=== PATIENT | male | born 1955 | race African-American/Black ===

== ENCOUNTER 2024-10-12 00:31 | Inpatient (IN) | payer MEDICARE, MEDICAID ==
[~2024-10-12] VITALS: Ht 182.9 cm; Wt 76.2 kg
[2024-10-12 00:34] VITALS: O2SAT 96
[2024-10-12 03:13] LABS: BASOPHILS % 0.9 % (0.0-2.0); EOSINOPHILS % 0.2 % (0.0-5.0); HEMATOCRIT. 41.1 % (42.0-52.0); HEMOGLOBIN. 13.6 g/dL (14.0-18.0); LYMPHOCYTES % 10.5 % (20.0-50.0); MEAN PLATELET VOLUME 8.3 fl (7.4-10.4); MONOCYTES % 6.5 % (2.0-8.0); NEUTROPHILS % 81.9 % (40.0-76.0); PLATELET 246 x1000/uL (130-400); RED BLOOD CELL COUNT 4.60 mill/uL (4.7-6.1); RED CELL DISTRIBUTION WIDTH 16.9 % (11.6-14.6)
[2024-10-12 03:28] LABS: CREATININE 1.0 mg/dL (0.6-1.3); UREA NITROGEN BLOOD < 5 mg/dL (9-23)
[2024-10-12] MEDS: SODIUM CHLORIDE 0.9% 1,000 ML IV ONE (03:28)
[2024-10-12 03:33] LABS: TROPONIN I HIGH SENSITIVITY 70 ng/L (3.0-53)
[2024-10-12] MEDS: CEFTRIAXONE 1GM/50ML 50 ML IV NR (04:12)
[2024-10-12] MEDS: SODIUM CHLORIDE 0.9% (SEPSIS BOLUS) IV NR (04:12)
[2024-10-12 04:28] LABS: ASPARTATE AMINOTRANSFERASE 44 IU/L (<34); BILIRUBIN DIRECT 0.2 mg/dL (<=3.0); BILIRUBIN TOTAL 0.9 mg/dL (0.1-1.0); PROTEIN TOTAL 7.2 g/dL (6.0-8.3)
[2024-10-12 04:35] LABS: TROPONIN I HIGH SENSITIVITY 97 ng/L (3.0-53)
[2024-10-12] MEDS: AZITHROMYCIN 500MG/250ML 250 ML IV NR (04:57)
[2024-10-12 05:39] LABS: CLARITY URINE CLEAR (CLEAR); COLOR URINE YELLOW (YELLOW); GLUCOSE URINE NEGATIVE (NEGATIVE); KETONES URINE NEGATIVE (NEGATIVE); LEUKOCYTE ESTERASE URINE NEGATIVE (NEGATIVE); NITRITE URINE NEGATIVE (NEGATIVE); OCCULT BLOOD URINE TRACE (NEGATIVE); PH URINE 7.5 (4.5-8.0); PROTEIN URINE NEGATIVE (NEGATIVE); SPECIFIC GRAVITY URINE 1.007 (1.005-1.030); UROBILINOGEN URINE 1.0 E.U./dL (0.2-1.0)
[2024-10-12] MEDS ORDERED: ACETAMINOPHEN 325MG TABLET PO PRN ×2 (05:45→09:15)
[2024-10-12 07:27] LABS: WBC URINE 0-2 /hpf (0-2)
[2024-10-12 07:28] LABS: BACTERIA URINE NONE SEEN; RBC URINE 0-2 /hpf (0-2); SQUAMOUS EPITHELIAL CELL URINE NONE SEEN /lpf (RARE/1+)
[2024-10-12] MEDS ORDERED: ONDANSETRON HCL 4MG/2ML INJ IV PRN (09:15)
[2024-10-12] MEDS ORDERED: ALBUTEROL 6.7GM HFA INHALER ORI PRN (09:15)
[2024-10-12] MEDS ORDERED: DEXTROSE 50% WATER 50ML SYRINGE IV PRN (09:15)
[2024-10-12 09:42] LABS: INFLUENZA TYPE A Presumptive Negative (Pres. Neg.)
[2024-10-12 09:43] LABS: INFLUENZA TYPE B Presumptive Negative (Pres. Neg.); RESPIRATORY SYNCYTIAL VIRUS Not Detected (Not Detectd)
[2024-10-12] MEDS ORDERED: ALBUTEROL (0.083%) 2.5MG/3ML NEB HHN PRN (10:45)
[2024-10-12] MEDS: PANTOPRAZOLE SODIUM 40 MG/VIAL IV SCH (10:54)
[2024-10-12] MEDS: IOHEXOL-300 100 ML BOTTLE ONE (12:25)
[2024-10-12] MEDS: BLOOD SUGAR DIAGNOSTIC STRIP TEST SCH (12:55)
[2024-10-12 16:51] VITALS: BP 160/89; PULSE 57; RESP 18; TEMP 36.8628
[2024-10-12 17:00] VITALS: BP 166/89; PULSE 57; RESP 17; TEMP 36.2; O2SAT 97
[2024-10-12] MEDS: INSULIN LISPRO 100 UNITS/ML SUBCUT SCH (17:50)
[2024-10-12 20:00] VITALS: BP 146/97; PULSE 83; RESP 58; TEMP 36.6; O2SAT 96
[2024-10-13] VITALS: BP 169/85; PULSE 54; RESP 18; TEMP 35.8; O2SAT 97
[2024-10-13] MEDS: HYDRALAZINE 20MG/ML VIAL IV PRN (01:12)
[2024-10-13 04:00] VITALS: BP 147/93; PULSE 58; RESP 18; TEMP 36.1; O2SAT 97
[2024-10-13] MEDS: CEFTRIAXONE 1GM/50ML 50 ML IV SCH (05:40)
[2024-10-13] MEDS: AZITHROMYCIN 500MG/250ML 250 ML IV SCH (05:55)
[2024-10-13] MEDS ORDERED: AZITHROMYCIN 500MG/250ML 250 ML IV SCH (06:00)
[2024-10-13 08:00] VITALS: BP 177/96; PULSE 68; RESP 18; TEMP 36.4; O2SAT 99
[2024-10-13 12:00] VITALS: BP 160/86; PULSE 70; RESP 17; TEMP 36.3; O2SAT 97
[2024-10-13 16:00] VITALS: BP 164/92; PULSE 69; RESP 17; TEMP 36.5; O2SAT 99
[2024-10-13] MEDS: ASPIRIN 81MG TABLET PO SCH (18:54)
[2024-10-13 20:36] LABS: BASOPHILS % 1.3 % (0.0-2.0); EOSINOPHILS % 1.0 % (0.0-5.0); HEMATOCRIT. 45.0 % (42.0-52.0); HEMOGLOBIN. 14.8 g/dL (14.0-18.0); LYMPHOCYTES % 60.0 % (20.0-50.0); MEAN PLATELET VOLUME 9.5 fl (7.4-10.4); MONOCYTES % 8.2 % (2.0-8.0); NEUTROPHILS % 29.5 % (40.0-76.0); PLATELET 294 x1000/uL (130-400); RED BLOOD CELL COUNT 5.01 mill/uL (4.7-6.1); RED CELL DISTRIBUTION WIDTH 16.8 % (11.6-14.6)
[2024-10-13 20:55] LABS: CREATININE 0.8 mg/dL (0.6-1.3); UREA NITROGEN BLOOD < 5 mg/dL (9-23)
[2024-10-13 20:56] LABS: TRIGLYCERIDE 164.0 mg/dL (0-150)
[2024-10-13 20:57] LABS: LDL CHOLESTEROL 188.0 mg/dL (5-100)
[2024-10-13] MEDS: ATORVASTATIN CALCIUM 40MG TABLET PO SCH (22:00)
[2024-10-13] MEDS: CLOPIDOGREL 75MG TABLET PO SCH (22:01)
[2024-10-14 08:00] VITALS: BP 123/80; PULSE 77; RESP 18; TEMP 36.4; O2SAT 99
[2024-10-14 12:00] VITALS: BP 158/89; PULSE 61; RESP 16; TEMP 36.5; O2SAT 100
[2024-10-14 16:00] VITALS: BP_SYST 138; BP_SYST 158; BP_DIAS 103; BP_DIAS 89; PULSE 61; PULSE 69; RESP 16; RESP 18; TEMP 36.5; O2SAT 100; O2SAT 98
[2024-10-14 20:00] VITALS: BP 142/89; PULSE 67; RESP 19; TEMP 36.4; O2SAT 99
[2024-10-15] VITALS: BP 164/117; PULSE 122; RESP 19; TEMP 36.3; O2SAT 96
[2024-10-15 04:00] VITALS: BP 165/111; PULSE 86; RESP 18; TEMP 36.3; O2SAT 96
[2024-10-15 08:00] VITALS: BP 129/99; PULSE 80; RESP 19; TEMP 36.4; O2SAT 99
[2024-10-15] MEDS: FAMOTIDINE 20MG/2ML VIAL IV SCH (09:36)
[2024-10-15] MEDS ORDERED: HYDRALAZINE 20MG/ML VIAL IV PRN (11:45)
[2024-10-15 12:00] VITALS: BP 141/99; PULSE 66; RESP 17; TEMP 36.5; O2SAT 98
[2024-10-15 16:00] VITALS: BP 146/91; PULSE 92; RESP 18; TEMP 36.3; O2SAT 99
[2024-10-15] MEDS ORDERED: AZIT500T8 MT (17:05)
[2024-10-15 20:00] VITALS: BP 143/87; PULSE 78; RESP 17; TEMP 36.6; O2SAT 99
[2024-10-16] VITALS: BP 137/78; PULSE 81; RESP 18; TEMP 36.4; O2SAT 100
[2024-10-16 04:00] VITALS: BP 149/99; PULSE 79; RESP 18; TEMP 37.4; O2SAT 99
[2024-10-16 08:00] VITALS: BP 141/90; PULSE 76; RESP 19; TEMP 36.9; O2SAT 98
[2024-10-16] MEDS: ENOXAPARIN 40MG/0.4ML SYR SUBCUT SCH (09:00)
[2024-10-16 13:35] VITALS: BP 120/78; PULSE 68; RESP 18; TEMP 97.9
== END 2024-10-16 14:30 | disposition home or self-care (01) | DRG 871 ==
LOC: ER 00:31 → UNDOADMIN 04:35 → 5WST 04:35 → EDBEDREQTM 04:48 → EDBEDREQ 04:48 → ENRESERV 06:36 → 5WST 13:58 → 6WST 13:58
PROVIDERS: ADMIT Internal Medicine; ATTEND Internal Medicine
DX: A41.9 Sepsis, unspecified organism (principal); G93.41 Metabolic encephalopathy; U07.1 COVID-19; J96.00 Acute respiratory failure, unspecified whether with hypoxia or hypercapnia; I63.542 Cerebral infarction due to unspecified occlusion or stenosis of left cerebellar artery; I21.4 Non-ST elevation (NSTEMI) myocardial infarction; E87.20 Acidosis, unspecified; M25.561 Pain in right knee; E11.9 Type 2 diabetes mellitus without complications; I10 Essential (primary) hypertension; R65.20 Severe sepsis without septic shock; E78.00 Pure hypercholesterolemia, unspecified; I25.10 Atherosclerotic heart disease of native coronary artery without angina pectoris; N43.3 Hydrocele, unspecified; N50.3 Cyst of epididymis; N49.2 Inflammatory disorders of scrotum; Z79.899 Other long term (current) drug therapy; Z79.02 Long term (current) use of antithrombotics/antiplatelets; Z79.82 Long term (current) use of aspirin
CPT/HCPCS: 36415; 70551; 71045; 71250; 71260; 74177; 76870; 80048; 80061; 80076; 81003; 82962; 83036; 83605; 84145; 84484; 85025; 87420; 87426; 87804; 92523; 92610; 93005; 93306; 93976; 97162; 97166; 99291; A4606; J0360; J0456; J0696; J1308; J1650; J2470; J7030; Q9967